=== PATIENT | female | born 1975 | race Caucasian/White ===

== ENCOUNTER → 2020-05-13 09:39 | Outpatient (CLI) | payer OTHER ==
--- NOTE | ~2020-05-13 | ST ---
PATIENT:GRADY CASTANEDA MEDICAL RECORD: [id number] SEX: F LOCATION:[facility] ORDER #: ADMISSION DATE: 05/13/20 AGE OF PATIENT: 44 REFERRING PHYSICIAN: INTERPRETING PHYSICIAN: ANASTACIO ADAMSON MD DATE OF SERVICE: 05/13/2020 NUCLEAR STRESS TEST GATED: Gated is normal with normal wall motion. Normal EF 70%. SPECT IMAGING: SPECT imaging was performed. FINDINGS: 1. Short axis view: Short axis view shows good uptake along the anterior wall, lateral wall, and inferior wall. 2. Horizontal axis: Horizontal axis shows good uptake along the anterior wall and inferior wall. 3. Vertical axis: Vertical axis shows good uptake along the lateral wall and septum. FINAL IMPRESSION: 1. Normal gated. Normal wall motion. Normal EF of 70%. 2. Normal SPECT imaging. FINAL IMPRESSION: The scan is felt low risk for any significant ongoing ischemic coronary artery disease. LV function remains normal. Continued medical management and risk factor modification is recommended. TRANSINT:[id number] Voice Confirmation ID: [id number] DOCUMENT ID: [id number] ANASTACIO ADAMSON MD CC: [id number] DICTATION DATE: 05/16/20941 LOGISTICS ENGINEER: 05/17/20 0125 DEP CLI 05/13/20 [facility] [address] [id number]
== END | disposition home or self-care (01) ==
LOC: D.HCCARDIO 09:39 → D.HCCECHO 10:30
PROVIDERS: ATTEND Internal Medicine Interventional Cardiology
DX: I10 Essential (primary) hypertension (principal)